=== PATIENT | male | born 1935 | race Caucasian/White ===

== ENCOUNTER 2016-10-11 11:09 | Emergency (ER) | payer OTHER ==
[~2016-10-11] VITALS: Ht 182.9 cm; Wt 96.0 kg
[~2016-10-11 11:09] MED LIST: ATEN50TA8 PO; CHOL1000 PO; CRS/10 PO; GLC/500 PO; LSN5 PO; PLV75 PO; RANI150T3 PO; TAMS0.4C38 PO
[2016-10-11] MEDS ORDERED: LISI-461 PO (11:32)
[2016-10-11] MEDS ORDERED: MISCCAP80 PO (11:32)
[2016-10-11] MEDS ORDERED: LIDOCAINE/EPINEPH/TETRACAINE 1 EA SYR EXT STA (11:55)
[2016-10-11 11:58] VITALS: O2SAT 97; Ht 182.9 cm; Wt 96.0 kg
[2016-10-11] MEDS ORDERED: DIPHTHERIA/TETANUS/PERTUSSIS 0.5 ML SYR/VIAL IM. ONE (12:00)
--- NOTE | 2016-10-11 12:15 | EMERGENCY ROOM VISIT NOTE ---
History Report prepared by Shira: Skyler Mac Under the Supervision of: Dr. Shai Castillo D.O. First contact with patient: 11:51 Chief Complaint: ALTERED MENTAL STATUS Stated Complaint: FALL/AMS/LACERATION Nursing Triage Summary: Pt is very confused. Does not recall falling at the end of his driveway. Pt does not remember coming into the ER via ambulance. Does not realize he is in the hospital. History of Present Illness The patient is an 81 year old male who presents to the Emergency Room with complaints of a persistent altered mental status that started this morning prior to arrival. Per the patient's daughter, she got a phone call saying that the patient was found in his driveway near a shovel. It was presumed that the patient was shoveling mud off his driveway. The people that found the patient called an ambulance. The patient hit his head, and has a laceration on his left forehead and an abrasion on his left knee. The patient does not really remember what happened this morning, and currently he is not oriented to time, place, or situation. Per the patient, he has a bit of a headache from the fall, and pain in his left ribs. He denies any nausea, vomiting, leg pain, back pain, chest pain, abdominal pain, or arm pain. Per the patient's daughter, the patient can talk but he is hard of hearing. He is normally a bit confused, but today, he is more confused than normal. Source of History: patient, family Onset: Prior to arrival this morning Position: other (global - altered mental status) Quality: other (not oriented to time, place, or situation) Timing: other (persistent) Associated Symptoms: + headache, No abdominal pain, No chest pain, No nausea , No vomiting Note: Associated symptoms: Left rib pain, laceration on left forehead, abrasion to left knee. Denies leg pain or arm pain. Review of Systems See HPI for pertinent positives & negatives. A total of 10 systems reviewed and were otherwise negative. Past Medical & Surgical Medical Problems: (1) Confusion (2) Diabetes (3) Hard of hearing (4) HTN (hypertension) (5) Kidney disease Family History Cancer Diabetes mellitus Heart disease Hypertension Lung disease Social History Smoking Status: Former Smoker Alcohol Use: none Drug Use: none Occupation Status: retired Current/Historical Medications Scheduled Atenolol (Tenormin), 50 MG PO DAILY Cholecalciferol (Vitamin D3), 1,000 INTER.UNIT PO DAILY Clopidogrel Bisulfate (Clopidogrel), 75 MG PO QAM Lisinopril (Lisinopril), 10 MG PO QAM Metformin Hcl (Glucophage), 500 MG PO BID Probiotic Product (Probiotic), 1 CAP PO QPM Ranitidine Hcl (Zantac), 150 MG PO BID Rosuvastatin Calcium (Crestor), 10 MG PO QPM Tamsulosin Hcl (Flomax), 0.4 MG PO DAILY Allergies Coded Allergies: Atorvastatin (Verified Allergy, Unknown, Fatigue, 10/11/16) Penicillins (Verified Allergy, Unknown, Blistering of hands and feet., ) Physical Exam Vital Signs Date Time Temp Pulse Resp B/P Pulse Ox O2 Delivery O2 Flow Rate FiO2 10/11/16 13:47 36.8 68 18 185/97 96 10/11/16 13:22 68 18 185/97 96 10/11/16 11:58 Room Air 10/11/16 11:58 97 Room Air 10/11/16 11:35 36.8 64 18 201/94 97 Room Air Physical Exam GENERAL: Patient is awake, alert, appears anxious but is not uncomfortable appearing. EYES: The conjunctivae are clear. The pupils are round and reactive. EARS, NOSE, MOUTH AND THROAT: The nose is without any evidence of any deformity. Large abrasion and hematoma on left forehead, no active bleeding noted. NECK: The neck is nontender and supple. RESPIRATORY: Normal respiratory effort is noted there is no evidence of wheezing rhonchi or rales CARDIOVASCULAR: Regular rate and rhythm noted there no murmurs rubs or gallops normal S1 normal S2 GASTROINTESTINAL: The abdomen is soft. Bowel sounds are present in all quadrants. Abdomen is nontender BACK: No midline tenderness or or step-off noted range of motion in flexion extension as well as rotation no signs of muscle spasm noted MUSCULOSKELETAL/EXTREMITIES: There is no evidence of gross deformity full range of motion is noted in the hips and shoulders SKIN: Abrasion over left knee, no active bleeding noted. Trace pedal edema noted bilaterally. NEUROLOGIC: Patient is oriented to person, but not place, time, or situation. Patient cannot recall events of injury. Strength was symmetric. No facial droop appreciated. Medical Decision & Procedures ER Provider Diagnostic Interpretation: Radiology results as stated below per my review and radiologist interpretation: HEAD CT NONCONTRAST CT DOSE: 729.78 mGycm HISTORY: Trauma. Change in mental status. EVALUATE ALTERED MENTAL STATUS/WEAKNESS TECHNIQUE: Multiaxial CT images of the head were performed without the use of intravenous contrast. Comparison: None. Findings: The paranasal sinuses and mastoid air cells are clear. Findings of scattered blood throughout the left cerebral hemisphere. On the left cerebral convexity is a curvilinear parenchymal contusion measuring 2.9 x 1.4 cm. There is blood within the interhemispheric fissure having a maximum thickness of 3.5 mm. There is a very thin subdural hematoma extending over the left frontal temporal and parietal regions to 2 left temporal fossa. This measures 5.5 mm at maximum. There is blood over the left peritentorial region. There is no evidence for intraventricular extension of hemorrhage. Impression: 1. Acute intracranial bleed with a small thin subdural extending over the bulk of the left cerebral hemisphere and left temporal fossa. 2. Interhemispheric fissure extension of blood possibly represent a small associated subdural. 3. Faint parenchymal hemorrhage left parietal convexity. 4 bladder extends to the left. Tentorial region. 5. No evidence for intraventricular extension. Electronically signed by: Harry Barkley M.D. 10/11/2016 12:53 PM Dictated Date/Time: 10/11/2016 12:44 PM CHEST ONE VIEW PORTABLE CLINICAL HISTORY: EVALUATE ALTERED MENTAL STATUS/WEAKNESS dyspnea COMPARISON STUDY: 08/26/2015 FINDINGS: Mild increase in pulmonary vasculature compared to the prior study. Mild increase in cardiac size. Diaphragms are smooth. No well-defined focal infiltrate. IMPRESSION: Pulmonary vascular congestion Electronically signed by: Harry Barkley M.D. 10/11/2016 12:14 PM Dictated Date/Time: 10/11/2016 12:[address] OF THE CERVICAL SPINE CLINICAL HISTORY: Neck pain status post trauma. Weakness. COMPARISON STUDY: No previous studies for comparison. CT DOSE: 501.88 mGycm TECHNIQUE: CT scan of the cervical spine was performed from the skull base to the thoracic inlet. Images are reviewed in the axial, sagittal, and coronal planes. IV contrast was not administered for this examination. FINDINGS: The visualized portions of the lung apices reveal no evidence of pneumothorax. The prevertebral soft tissues are normal. No fractures or traumatic subluxations are visualized. There are multilevel degenerative changes. There is straightening of normal cervical lordosis. Minimal anterolisthesis of C3 on C4 and C4 on C5 is felt to be degenerative. There is soft tissue asymmetry in the region of the right supraglottic pharynx. A small polypoid nodule cannot be excluded. IMPRESSION: 1. No evidence of acute fracture or traumatic subluxation 2. Nonspecific soft tissue asymmetry involving the right posterior lateral supraglottic airway. Electronically signed by: Jovanny Brewster M.D. 10/11/2016 12:49 PM Dictated Date/Time: 10/11/2016 12:44 PM Laboratory Results 10/11/16 11:00 Red Blood Count 3.41, Mean Corpuscular Volume 93.5, Mean Corpuscular Hemoglobin 31.4, Mean Corpuscular Hemoglobin Concent 33.5, Mean Platelet Volume 9.8, Neutrophils (%) (Auto) 67.7, Lymphocytes (%) (Auto) 23.6, Monocytes (%) (Auto) 6.6, Eosinophils (%) (Auto) 0.6, Basophils (%) (Auto) 0.3, Neutrophils # (Auto) 6.75, Lymphocytes # (Auto) 2.35, Monocytes # (Auto) 0.66, Eosinophils # (Auto) 0.06, Basophils # (Auto) 0.03 10/11/16 11:00 Test 10/11/16 00:00 10/11/16 11:00 10/11/16 11:26 Urine Color YELLOW Urine Appearance CLEAR (CLEAR) Urine pH 6.0 (4.5-7.5) Urine Specific Kite 1.023 (1.000-1.030) Urine Protein 1+ (NEG) Urine Glucose (UA) NEG (NEG) Urine Ketones NEG (NEG) Urine Occult Blood NEG (NEG) Urine Nitrite NEG (NEG) Urine Bilirubin NEG (NEG) Urine Urobilinogen NEG (NEG) Urine Leukocyte Esterase NEG (NEG) Urine WBC (Auto) 1-5 /hpf (0-5) Urine RBC (Auto) 0-4 /hpf (0-4) Urine Hyaline Casts (Auto) 0 /lpf (0-5) Urine Epithelial Cells (Auto) 10-20 /lpf (0-5) Urine Bacteria (Auto) NEG (NEG) White Blood Count 9.97 K/uL (4.8-10.8) Red Blood Count 3.41 M/uL (4.7-6.1) Hemoglobin 10.7 g/dL (14.0-18.0) Hematocrit 31.9 % (42-52) Mean Corpuscular Volume 93.5 fL (80-100) Mean Corpuscular Hemoglobin 31.4 pg (25-34) Mean Corpuscular Hemoglobin Concent 33.5 g/dl (32-36) Platelet Count 151 K/uL (130-400) Mean Platelet Volume 9.8 fL (7.4-10.4) Neutrophils (%) (Auto) 67.7 % Lymphocytes (%) (Auto) 23.6 % Monocytes (%) (Auto) 6.6 % Eosinophils (%) (Auto) 0.6 % Basophils (%) (Auto) 0.3 % Neutrophils # (Auto) 6.75 K/uL (1.4-6.5) Lymphocytes # (Auto) 2.35 K/uL (1.2-3.4) Monocytes # (Auto) 0.66 K/uL (0.11-0.59) Eosinophils # (Auto) 0.06 K/uL (0-0.5) Basophils # (Auto) 0.03 K/uL (0-0.2) RDW Standard Deviation 59.6 fL (36.4-46.3) RDW Coefficient of Variation 17.5 % (11.5-14.5) Immature Granulocyte % (Auto) 1.2 % Immature Granulocyte # (Auto) 0.12 K/uL (0.00-0.02) Nucleated RBC Absolute Count (auto) 0.04 K/uL (0-0) Nucleated Red Blood Cells % 0.4 % Prothrombin Time 11.2 SECONDS (9.0-12.0) Prothromb Time International Ratio 1.0 (0.9-1.1) Activated Partial Thromboplast Time 27.3 SECONDS (21.0-31.0) Partial Thromboplastin Ratio 1.1 Anion Gap 7.0 mmol/L (3-11) Est Creatinine Clear Calc Drug Dose 52.7 ml/min Estimated GFR () 58.9 Estimated GFR (Non- 50.8 BUN/Creatinine Ratio 18.2 (10-20) Calcium Level 9.6 mg/dl (8.5-10.1) Phosphorus Level 2.7 mg/dl (2.5-4.9) Magnesium Level 1.8 mg/dl (1.8-2.4) Total Bilirubin 0.6 mg/dl (0.2-1) Direct Bilirubin 0.1 mg/dl (0-0.2) Aspartate Amino Transf (AST/SGOT) 20 U/L (15-37) Alanine Aminotransferase (ALT/SGPT) 31 U/L (12-78) Alkaline Phosphatase 54 U/L (45-117) Total Creatine Kinase 73 U/L (39-308) Creatine Kinase MB 1.8 ng/ml (0.5-3.6) Creatine Kinase MB Ratio 2.5 (0-3.0) Troponin I < 0.015 ng/ml (0-0.045) Total Protein 7.4 gm/dl (6.4-8.2) Albumin 3.8 gm/dl (3.4-5.0) Thyroid Stimulating Hormone (TSH) 1.910 uIu/ml (0.300-4.500) Bedside Glucose 154 mg/dl (70-99) Laboratory results per my review. Medications Administered Medications (Trade) Dose Ordered Sig/Bonita Route Start Time Stop Time Status Last Admin Dose Admin Tetracaine/ Epinephrine/ Lidocaine (L.e.t. Gel 4%/ 1:100/0.5%) 1 ea UD STAT EXT 10/11/16 11:55 10/11/16 11:56 DC 10/11/16 12:05 1 EA Diphtheria/ Pertussis/Tetanus Vacc (Adacel Inj) 0.5 ml ONCE ONCE IM. 10/11/16 12:00 10/11/16 12:01 DC 10/11/16 12:07 0.5 ML Ondansetron HCl (Zofran Inj) 4 mg STK-MED ONCE .ROUTE 10/11/16 12:41 10/11/16 12:44 DC 10/11/16 12:50 4 MG ECG Indication: altered mental status Rate (beats per minute): 63 Rhythm: normal sinus Findings: no ectopy, other (no acute ST segments) Change: no significant change (from Aug 26 of last year) ED Course 1152: The patient was evaluated in room C11B. A complete history and physical examination were performed. 1155: Ordered L.e.t. Gel 4%/1:100/0.5% 1 ea EXT. 1200: Ordered Adacel Inj 0.5 ml IM. 1232: I reevaluated the patient is stable. I talked to the patient and his daughter, and let them know that the patient needs to be transferred by [facility] to [facility]. They expressed understanding and agreement with the treatment plan. The patient will be transferred to [facility]. 1259: I discussed the patient with Dr. Ac Durán Emergency [facility] - he accepts the patient via [facility] transfer. Medical Decision Differential diagnosis: Etiologies such as fracture, dislocation, intra-abdominal, pneumothorax, intrathoracic , intracranial, neurologic, as well as other traumatic pathologies were entertained. Nursing notes reviewed. Additional history is obtained from the prehospital personnel. Additional history is obtained from the patient's daughter. The patient is an 81-year-old male who does have some underlying history of dementia. He presented to the emergency department after he was found lying outside with apparent head injury. The patient was confused and was found have an elevated blood pressure. The patient has significant signs of head trauma on the left side of his head. He does take Plavix but he is not on any other blood thinners or anticoagulation. The patient was found have a CT consistent with subdural hematoma. This appeared quite extensive although there was no midline shift. There is concerns by the reading radiologist that the amount of hemorrhage noted could lead to significant swelling. For this reason the patient was discussed with [facility] emergency department for possible transfer. I discussed this case with the patient's daughter. I discussed patient's laboratory radiographic studies with the patient and his daughter. I do feel the patient is at risk and requires rapid transportation for this reason the patient was transferred via helicopter to the trauma center. His blood pressure was treated with Cardene in the emergency department. He was reevaluated multiple times. He was also treated with IV antiemetics. Consults Time Called: [id number] Consulting Physician: Dr. Ac Durán Emergency [facility] Returned Call: [phone] I discussed the patient with Dr. Ac Durán Emergency [facility] - he accepts the patient via [facility] transfer. Impression Primary Impression: Fall Additional Impressions: Head injury Traumatic subdural hematoma Altered mental status Facial abrasion Critical Care I have personally spent greater than 45 minutes of critical care time in the direct management of this patient. This includes bedside care, interpretation of diagnostic studies, and testing, discussion with consultants, patient, and family members, and other required patient management activities. This 45 minutes is in excess of all separately billable procedures. Scribe Attestation The scribe's documentation has been prepared under my direction and personally reviewed by me in its entirety. I confirm that the note above accurately reflects all work, treatment, procedures, and medical decision making performed by me. Departure Information Dispostion Transfer Acute Care Facility (to [facility]) Referrals Brenda Allan M.D. (MEDICAL) (PCP) Patient Instructions My [facility] Problem Qualifiers Primary Impression: Fall Encounter type: initial encounter Qualified Codes: W19.XXXA - Unspecified fall, initial encounter Additional Impressions: Head injury Encounter type: initial encounter Qualified Codes: S09.90XA - Unspecified injury of head, initial encounter Traumatic subdural hematoma Encounter type: initial encounter Loss of consciousness presence/duration: with LOC of unspecified duration Qualified Codes: S06.5X9A - Traumatic subdural hemorrhage with loss of consciousness of unspecified duration, initial encounter Altered mental status Altered mental status type: unspecified Qualified Codes: R41.82 - Altered mental status, unspecified Facial abrasion Encounter type: initial encounter Qualified Codes: S00.81XA - Abrasion of other part of head, initial encounter
[2016-10-11 12:25] LABS: ALT/SGPT 31 U/L (12-78); BASO % 0.3 %; BASO ABS # 0.03 K/uL (0-0.2); BLOOD UREA NITROGEN 24 mg/dl (7-18); BUN/CREATININE RATIO 18.2 (10-20); CALCIUM 9.6 mg/dl (8.5-10.1); CARBON DIOXIDE 29 mmol/L (21-32); CHLORIDE 104 mmol/L (98-107); COMPLETE YES; EOS % 0.6 %; GLUCOSE 165 mg/dl (70-99); HEMATOCRIT 31.9 % (42-52); IG% 1.2 %; LYMPH % 23.6 %; LYMPH ABS # 2.35 K/uL (1.2-3.4); MAGNESIUM 1.8 mg/dl (1.8-2.4); MEAN CELL VOLUME 93.5 fL (80-100); MEAN CORPUSCULAR HEMOGLOBIN 31.4 pg (25-34); MEAN CORPUSCULAR HGB CONC 33.5 g/dl (32-36); MEAN PLATELET VOLUME 9.8 fL (7.4-10.4); MONO % 6.6 %; NEUT % 67.7 %; PLATELET COUNT 151 K/uL (130-400); POTASSIUM 3.8 mmol/L (3.5-5.1); RED BLOOD COUNT 3.41 M/uL (4.7-6.1); SODIUM 140 mmol/L (136-145); WHITE BLOOD COUNT 9.97 K/uL (4.8-10.8)
[2016-10-11 12:29] LABS: PARTIAL THROMBOPLASTIN RATIO 1.1; PROTHROMBIN TIME (PATIENT) 11.2 SECONDS (9.0-12.0)
[2016-10-11 12:34] LABS: ALKALINE PHOSPHATASE 54 U/L (45-117); AST/SGOT 20 U/L (15-37); CKMB/CK RATIO 2.5 (0-3.0); PHOSPHORUS 2.7 mg/dl (2.5-4.9)
[2016-10-11] MEDS ORDERED: ONDANSETRON INJ 2 MG/ML 2 ML VIAL ONE (12:41)
--- NOTE | 2016-10-11 12:50 | DIAGNOSTIC IMAGING REPORT ---
CT OF THE CERVICAL SPINE CLINICAL HISTORY: Neck pain status post trauma. Weakness. COMPARISON STUDY: No previous studies for comparison. CT DOSE: 501.88 mGycm TECHNIQUE: CT scan of the cervical spine was performed from the skull base to the thoracic inlet. Images are reviewed in the axial, sagittal, and coronal planes. IV contrast was not administered for this examination. FINDINGS: The visualized portions of the lung apices reveal no evidence of pneumothorax. The prevertebral soft tissues are normal. No fractures or traumatic subluxations are visualized. There are multilevel degenerative changes. There is straightening of normal cervical lordosis. Minimal anterolisthesis of C3 on C4 and C4 on C5 is felt to be degenerative. There is soft tissue asymmetry in the region of the right supraglottic pharynx. A small polypoid nodule cannot be excluded. IMPRESSION: 1. No evidence of acute fracture or traumatic subluxation 2. Nonspecific soft tissue asymmetry involving the right posterior lateral supraglottic airway. Electronically signed by: Jovanny Brewster M.D. 10/11/2016 12:49 PM Dictated Date/Time: 10/11/2016 12:44 PM
--- NOTE | 2016-10-11 12:54 | DIAGNOSTIC IMAGING REPORT ---
HEAD CT NONCONTRAST CT DOSE: 729.78 mGycm HISTORY: Trauma. Change in mental status. EVALUATE ALTERED MENTAL STATUS/WEAKNESS TECHNIQUE: Multiaxial CT images of the head were performed without the use of intravenous contrast. Comparison: None. Findings: The paranasal sinuses and mastoid air cells are clear. Findings of scattered blood throughout the left cerebral hemisphere. On the left cerebral convexity is a curvilinear parenchymal contusion measuring 2.9 x 1.4 cm. There is blood within the interhemispheric fissure having a maximum thickness of 3.5 mm. There is a very thin subdural hematoma extending over the left frontal temporal and parietal regions to 2 left temporal fossa. This measures 5.5 mm at maximum. There is blood over the left peritentorial region. There is no evidence for intraventricular extension of hemorrhage. Impression: 1. Acute intracranial bleed with a small thin subdural extending over the bulk of the left cerebral hemisphere and left temporal fossa. 2. Interhemispheric fissure extension of blood possibly represent a small associated subdural. 3. Faint parenchymal hemorrhage left parietal convexity. 4 bladder extends to the left. Tentorial region. 5. No evidence for intraventricular extension. Electronically signed by: Harry Barkley M.D. 10/11/2016 12:53 PM Dictated Date/Time: 10/11/2016 12:44 PM
[2016-10-11] MEDS ORDERED: NiCARDipine IV 25 MG in SODIUM CHLORIDE 0.9% 250ML 240 ML IV STA (12:57)
[2016-10-11] MEDS ORDERED: NiCARDipine IV 25 MG in SODIUM CHLORIDE 0.9% 250ML 240 ML IV PRN (13:30)
[2016-10-11 13:37] LABS: URINE APPEARANCE CLEAR (CLEAR); URINE BILIRUBIN NEG (NEG); URINE COLOR YELLOW; URINE NITRITE NEG (NEG); URINE SPECIFIC GRAVITY 1.023 (1.000-1.030); UROBILINOGEN NEG (NEG)
[2016-10-11 13:47] VITALS: BP 185/97; PULSE 68; TEMP 36.8; O2SAT 96
[2016-10-11 13:50] LABS: MANUAL MICROSCOPIC REQUIRED? NO; REVIEW REQ? NO
== END 2016-10-11 13:24 | disposition short-term general hospital (02) ==
LOC: EDBD 11:09 → C.EDC 11:10
DX: S09.90XA Unspecified injury of head, initial encounter (principal); S06.5X9A Traumatic subdural hemorrhage with loss of consciousness of unspecified duration, initial encounter; R41.82 Altered mental status, unspecified; S00.81XA Abrasion of other part of head, initial encounter; W19.XXXA Unspecified fall, initial encounter; Y92.014 Private driveway to single-family (private) house as the place of occurrence of the external cause; S80.212A Abrasion, left knee, initial encounter; R07.81 Pleurodynia; E11.9 Type 2 diabetes mellitus without complications; I10 Essential (primary) hypertension; Z87.891 Personal history of nicotine dependence; Z83.3 Family history of diabetes mellitus; Z82.49 Family history of ischemic heart disease and other diseases of the circulatory system; Z23 Encounter for immunization